=== PATIENT | male | born 1940 | race Caucasian/White ===

== ENCOUNTER 2016-06-29 05:40 | Day surgery (SDC) | payer OTHER, BC ==
[~2016-06-29] VITALS: Ht 175.3 cm; Wt 72.6 kg
--- NOTE | ~2016-06-29 | O ---
Formerly [facility] [place] [address] OPERATIVE REPORT Name: ZAIRA CACERES [facility] Room #: 150-6 [facility]..#: [id number] Admission: 06/29/16 Attend Phys: Blair Piña MD Discharge: Date of : 36 Report #: [id number] THIS REPORT FOR: //name// CC: Austin Piña DATE OF SERVICE: 06/29/2016 PATIENT OF: Dr. Blair Piña and Dr. Austin Crespo. PREOPERATIVE DIAGNOSES: Left inguinal hernia and umbilical hernia. POSTOPERATIVE DIAGNOSES: Left inguinal hernia with a cord lipoma and an incarcerated umbilical hernia. PROCEDURE: Left inguinal hernia repair with Prolene hernia system mesh and excision of left cord lipoma and repair of an incarcerated umbilical hernia. SURGEON: Blair Piña MD ANESTHESIA: Local IV sedation. DESCRIPTION OF PROCEDURE: The patient was brought to the operating room and placed on operative table in the supine position. The patient underwent IV sedation and the left inguinal area and the umbilicus was prepped and draped in a sterile fashion. Skin and subcutaneous tissue overlying the left inguinal area was infiltrated with 0.5% Marcaine and 1% Xylocaine in a 1:1 mixture. I also infiltrated around the umbilicus at the same time. Left inguinal skin incision was then performed using #10 scalpel blade. Hemostasis obtained using electrocautery as well as clamps and 2-0 chromic ties. Dissection was carried down through subcutaneous tissue to the external oblique fascia, which was then incised with a knife and opened with the Metzenbaum scissors. The ilioinguinal nerve was identified and injected with a local mixture and preserved. The cord was then elevated and held into place with a [place] drain. A large indirect inguinal hernia sac was identified and dissected free along with a left cord lipoma. The cord lipoma was clamped, excised and tied with a 2-0 chromic tie and sent as specimen to pathology. The indirect inguinal hernia sac was dissected free and reduced back into the preperitoneal space. This was a fairly large very lateral indirect inguinal hernia. Upon inspecting the floor, there was a small direct hernia defect measuring only about 4 mm. There was some preperitoneal fat that was extruded through this fascial opening. This was dissected free and reduced back through the floor. An extended Prolene hernia system mesh was then inserted through the internal ring and the underlay patch was then deployed in the preperitoneal space. The floor was then tightened and closed in the small direct inguinal hernia defect using running 2-0 Prolene two layer Bassini repair. The overlay patch was then deployed in the inguinal canal [address] [address] OPERATIVE REPORT Name: ZAIRA CACERES [facility] [place] Room #: 150-6 [facility] M.R.#: [id number] Admission: 06/29/16 Attend Phys: Blair Piña MD Discharge: Date of : 36 Report #: [id number] and the mesh was secured to the pubic tubercle with the same running 2-0 Prolene suture. The mesh was then secured superiorly at the connector using simple interrupted 2-0 Vicryl sutures. The mesh was split and wrapped around the cord, secured to the inguinal ligament with simple interrupted 2-0 Vicryl suture. The cord and ilioinguinal nerve then returned to the canal intact. The external oblique fascia was then closed using running 2-0 Vicryl suture. Dinorah's fascia was then reapproximated using 3 simple interrupted 2-0 chromic sutures and the skin then closed with a running 4-0 subcuticular Vicryl stitch. Attention was then turned to the umbilical hernia. An infraumbilical transverse skin incision was then performed using #15 scalpel blade. Hemostasis obtained using electrocautery. Dissection was carried down through the subcutaneous tissue to some incarcerated preperitoneal fat, which was dissected free, excised and discarded. The fascial defect was dissected free and then closed with interrupted [id number] #1 Prolene sutures. The umbilicus then tacked to the fascia using simple interrupted 2-0 chromic suture. Deep and superficial subcutaneous tissue was then reapproximated using simple interrupted 2-0 chromic sutures and the skin then closed with a running 4-0 subcuticular Vicryl stitch. The umbilical incision was dressed with Dermabond, Telfa, 4 x 4 gauze, sponge and tape. Left inguinal hernia incision was dressed with Mastisol, half inch Steri-Strips cut in half, Telfa, 4 x 4 gauze, sponge and tape. The patient tolerated the procedure well. All sponge, lap and instrument counts were correct times 2. Total blood loss for the entire procedure was approximately 10 mL and the patient tolerated procedure well. <ELECTRONICALLY SIGNED> By: Blair Piña MD 06/29/16 1334 [id number] 1132 Blair Piña MD /nt
--- NOTE | ~2016-06-29 | S ---
[facility] [place] [address] SURGICAL PATH RPT PROCEDURE Name: ZAIRA ALEX GENE Room #: DEP [facility] M.R.#: [id number] Admission: 06/29/16 Date of : 36 Discharge: 06/29/16 Report #: [id number] Path Case #: [id number] PATHOLOGY REPORT COLLECTION DATE: 06/29/2016 RECEIVED DATE: 06/29/2016 SUBMITTING PHYS: Dr. Blair Piña OTHER PHYS: Dr. Austin Crespo SPECIMEN(S) RECEIVED: A.Cord lipoma * * * * * * * * * * * * FINAL DIAGNOSIS: Mature adipose tissue, cord lipoma, excision: - Abundant skeletal muscle identified in close association with mature adipose tissue (lipoma). COMMENT: Findings may be suggestive of an intramuscular lipoma. Clinical correlation is suggested. (IUV:all; d/t: 06/30/2016) PATHOLOGIST: Monae Boothe M.D. REPORT ELECTRONICALLY SIGNED BY: Monae Boothe M.D. DATE/TIME: 06/30/2016 13:54 * * * * * * * * * * * * GROSS PATHOLOGY: Received in formalin labeled "Zaira Alex cord lipoma," is a segment of lobulated fibroadipose tissue measuring 2.9 x 1.7 x 0.5 cm in maximum dimensions. Sectioning reveals homogeneous, bright yellow cut surfaces. Regional Project Manager tissue is submitted in cassette A1. (CAA; 06/29/2016) CLINICAL HISTORY: Left inguinal and umbilical hernia INITIAL CPT CODE(S): A; 70847 Professional services performed by [facility] at [facility] [address] , [place] [address] Technical services performed by [facility] at [address] [place] [address] [address] [place] [address] SURGICAL PATH RPT PROCEDURE Name: ZAIRA ALEX GENE Room #: DEP [facility] Esteban.#: [id number] Admission: 06/29/16 Date of : 36 Discharge: 06/29/16 Report #: [id number] Path Case #: [id number] [place] [address]. [facility] [address] [address] PHONE: [phone] DIRECTOR: Antonio Montelongo M.D. * * * END OF REPORT * * *
[~2016-06-29 05:40] MED LIST: ALLOPURINOL 30300 M2 PO; ASPIR-TRIN325 MG PO; CENTRUM SILVER1 EAC2 PO; CRESTOR10 MG PO; FLOMAX0.4 MG PO; HYDROCHLOROTHIA25 M2 PO; LOPRESSOR50 PO; SWISS KRISS PO; TUMS PO; VITAMIN B-50 C0.4 MG PO; VITAMINC500 PO
[2016-06-29 07:06] LABS: CALCIUM 9.3 mg/dL (8.5-10.1); CREATININE 0.7 mg/dL (0.6-1.3); POTASSIUM 4.3 mmol/L (3.5-5.1)
[2016-06-29 07:35] VITALS: BP 138/74
[2016-06-29] MEDS ORDERED: NORCO 5-325 TA1 EACH PO (11:00)
[2016-06-29 11:12] VITALS: BP 138/74
[2016-07-21] MEDS ORDERED: CRESTOR20 MG PO (12:08)
[2016-07-21] MEDS ORDERED: TOPROL XL100 MG PO (12:09)
[2016-07-21] MEDS ORDERED: IBUPROFEN 200200 M1 PO (12:10)
[2016-07-27] MEDS ORDERED: NORCO 5-325 TA1 EACH PO (09:53)
== END 2016-06-29 13:12 | disposition home or self-care (01) ==
LOC: TBA 05:40 → OR 05:40
PROVIDERS: Surgery
DX: K40.90 Unilateral inguinal hernia, without obstruction or gangrene, not specified as recurrent (principal); K42.0 Umbilical hernia with obstruction, without gangrene; D17.6 Benign lipomatous neoplasm of spermatic cord; I10 Essential (primary) hypertension; E78.00 Pure hypercholesterolemia, unspecified; M10.9 Gout, unspecified; Z85.828 Personal history of other malignant neoplasm of skin
CPT/HCPCS: 50010; 50101; 50386; 50403; 54111; 54118; 56524; 56525; 56526; 56528; 56529; 62110; 62850; 70005

== ENCOUNTER → 2019-08-14 | Outpatient (CLI) | payer OTHER, BC ==
[~2019-08-14] VITALS: Ht 175.3 cm; Wt 72.6 kg
[~2019-08-14] MED LIST changes: +ALLOPURINOL 10100 M1 PO; +AYR SALINE50 M1 NARES; +CRESTOR20 MG PO; +CRESTOR5 MG PO; +FISH OIL 1,0001 EAC9 PO; +IBUPROFEN 200200 M1 PO; +NORCO 5-325 TA1 EACH PO; +TOPROL XL100 MG PO; +TOPROL XL25 MG PO
--- NOTE | ~2019-08-14 | P ---
[facility] [place] [address] PROCEDURE REPORT Name: [place]AIRA CACERES [facility] [place] #: REG LITO Serafin#: [id number] Admission: 08/14/19 Attend Phys: Valdo Kim Discharge: Date of : 36 Report #: [id number] THIS REPORT FOR: cc: Austin Crespo MD, Bernard O. MD McElhinney, Christian C. MD ~ CC: Austin Reillyrachana Jaimeso DATE OF SERVICE: 08/14/2019 PROCEDURE PERFORMED: Colonoscopy with polypectomy. HISTORY OF PRESENT ILLNESS: The patient is an 79-year-old male who began having intermittent bright red blood per rectum in July. He has a history of hemorrhoids. He denies any anorectal pain. Denies any abdominal pain, mild constipation at times. Denies any diarrhea. Last colonoscopy approximately 6 years ago reportedly negative. No family history of colon cancer or inflammatory bowel disease. His weight has been stable. He was on aspirin, but this has been held for the last several months. DESCRIPTION OF PROCEDURE: The risks and benefits of the procedure were explained to the patient, those risks including but not limited to bleeding, perforation and the risk of sedation. He understood these risks and gave informed consent. Sedation was given using propofol per anesthesia. Next, a digital rectal exam showed small external hemorrhoids, nonbleeding, otherwise normal. Next, using a standard Olympus colonoscope, the scope was placed in the patient's anus and advanced under direct vision to the cecum. There overall prep was good. Cecum and ileocecal valve were normal in appearance. Ascending, transverse and descending colon were normal. In the sigmoid colon, multiple diverticula were noted. No evidence of bleeding or inflammation. A 6 mm sessile polyp was noted. This was removed by snare cautery. The rectal mucosa was normal. On retroflexion, medium size nonbleeding internal hemorrhoids were noted. Close examination of the anal canal showed small external hemorrhoids. No evidence of bleeding. No anal fissure noted. The scope was then withdrawn and the procedure terminated. The patient tolerated the procedure well. IMPRESSION: 1. Sigmoid diverticulosis. 2. Sigmoid colon polyp. 3. Medium sized internal hemorrhoids, small external hemorrhoids. RECOMMENDATIONS: 1. Await biopsy results. [address] [address] PROCEDURE REPORT Name: ZAIRA CACERES [facility] Room #: REG LITO Betancourt#: [id number] Admission: 08/14/19 Attend Phys: Valdo Kim Discharge: Date of : 36 Report #: [id number] 2. Suspect recent bleeding, likely secondary to hemorrhoids based on clinical history, although diverticular bleed is possible. Typically, this results in more blood than the patient describes recently. He has had no further bleeding at this time. We would recommend high fiber diet as well as Analpram on a p.r.n. basis. Thank you for allowing me to participate in his care. By: 0905 Valdo Amaya MD /nt
--- NOTE | 2019-08-15 14:07 | PATH ---
[facility] [address] [place] [address] PATHOLOGY RPT PROCEDURE Name: ZAIRA ALEX GENE Room #: REG LITO Betancourt#: [id number] Admission: 08/14/19 Date of : 36 Discharge: Report #: [id number] Path Case #: [id number] [facility] Accession Number: [id number] . 01 Material submitted: . sigmoid colon - POLYP AT SIGMOID . 01 Clinical history: . Blood in stool . 02 Diagnosis: Polyp, at sigmoid, endoscopic biopsy: - Mature adipose tissue underneath reactive hyperplastic mucosa, compatible with submucosal lipoma. - Negative for dysplasia or malignancy. - Abundant pigmented macrophages within lamina propria, compatible with melanosis coli. (IUV:michael; 08/15/2019) QMS 08/15/2019 1126 Local . 02 Electronically signed: . Monae Boothe MD, Pathologist NPI- [id number] . 01 Gross description: . The specimen is received in formalin, labeled "Zaira Alex", "sigmoid polyp". Received is a single polypoid segment of dark moreno soft tissue measuring 0.2 cm. The specimen is entirely submitted in cassette A1.(SNA; 08/14/2019) BOBY/ANNE 08/14/2019 1558 Local . 02 Pathologist provided ICD-10: K92.1 . 02 CPT . 143175 Specimen Comment: A courtesy copy of this report has been sent to [phone], [phone] Specimen Comment: [phone], Specimen Comment: Report sent to ,DR TATUM / DR GARCIA Specimen Comment: A duplicate report has been generated due to demographic updates. Performed at: [address] [id number] MD Ashok Campos MD Phone: [phone] Performed at: [address] [address] PATHOLOGY RPT PROCEDURE Name: ZAIRA ALEX GENE Room #: REG [facility].#: [id number] Admission: 08/14/19 Date of : 36 Discharge: Report #: [id number] Path Case #: [id number] [address] [id number] MD Monae Boothe MD Phone: [phone]
== END | disposition home or self-care (01) ==
LOC: GI 06:45
DX: K62.5 Hemorrhage of anus and rectum (principal); K63.89 Other specified diseases of intestine; K57.30 Diverticulosis of large intestine without perforation or abscess without bleeding; K64.8 Other hemorrhoids; K64.4 Residual hemorrhoidal skin tags; I10 Essential (primary) hypertension; E78.00 Pure hypercholesterolemia, unspecified; K21.9 Gastro-esophageal reflux disease without esophagitis; M10.9 Gout, unspecified; Z98.890 Other specified postprocedural states; Z79.899 Other long term (current) drug therapy; Z87.891 Personal history of nicotine dependence; Z85.828 Personal history of other malignant neoplasm of skin; Z90.49 Acquired absence of other specified parts of digestive tract; Z87.19 Personal history of other diseases of the digestive system

== ENCOUNTER → 2020-01-23 | Outpatient (CLI) | payer OTHER, BC | LOC: SJCVC 11:11 | PROVIDERS: ATTEND Internal Medicine Cardiovascular Disease | DX: R94.31 Abnormal electrocardiogram [ECG] [EKG] (principal); I45.10 Unspecified right bundle-branch block; I44.0 Atrioventricular block, first degree; R00.1 Bradycardia, unspecified; I10 Essential (primary) hypertension; I65.23 Occlusion and stenosis of bilateral carotid arteries; I70.1 Atherosclerosis of renal artery; I73.9 Peripheral vascular disease, unspecified; I77.810 Thoracic aortic ectasia; I77.1 Stricture of artery; Z79.899 Other long term (current) drug therapy; Z87.891 Personal history of nicotine dependence ==

== ENCOUNTER → 2020-02-14 | Outpatient (CLI) | payer OTHER, BC | LOC: SJCVCIMAG 07:29 | PROVIDERS: ATTEND Internal Medicine Cardiovascular Disease | DX: I08.1 Rheumatic disorders of both mitral and tricuspid valves (principal); I10 Essential (primary) hypertension; I73.9 Peripheral vascular disease, unspecified; E78.00 Pure hypercholesterolemia, unspecified; I25.10 Atherosclerotic heart disease of native coronary artery without angina pectoris; Z87.891 Personal history of nicotine dependence ==

== ENCOUNTER → 2021-07-09 | Outpatient (CLI) | payer OTHER, BC | LOC: SJCVCIMAG 09:10 | PROVIDERS: ATTEND Internal Medicine Cardiovascular Disease | DX: I65.23 Occlusion and stenosis of bilateral carotid arteries (principal); I25.10 Atherosclerotic heart disease of native coronary artery without angina pectoris; I73.9 Peripheral vascular disease, unspecified; I70.8 Atherosclerosis of other arteries; M79.662 Pain in left lower leg; R60.0 Localized edema ==